=== PATIENT | male | born 1990 | race Caucasian/White ===

== ENCOUNTER 2016-10-07 08:55 | Emergency (ER) ==
[2016-10-07 09:03] VITALS: BP 128/84; TEMP 100.6; BMI 24.4
[2016-10-07 10:21] LABS: BASOPHILS % (AUTO) 0.4 % (0.0-3.0); EOSINOPHILS # (AUTO) 0.2 K/ul (0.0-0.7); EOSINOPHILS % (AUTO) 1.8 % (0.0-7.0); HEMATOCRIT 49.5 % (42.0-52.0); HEMOGLOBIN 17.4 g/dl (14.0-18.0); IMMATURE GRANULOCYTE % (AUTO) 0.7 % (0.0-5.0); LYMPHOCYTES # (AUTO) 1.4 K/uL (0.60-3.4); MEAN CORPUSCULAR HEMOGLOBIN 30.2 pg (27.0-31.0); MEAN CORPUSCULAR HGB CONC 35.2 (31.8-35.4); MEAN CORPUSCULAR VOLUME 85.9 fl (80.0-94.0); MONOCYTES # (AUTO) 0.9 K/uL (0.4-2.0); MONOCYTES % (AUTO) 8.8 (0-10); NEUTROPHILS # (AUTO) 7.6 K/ul (2.0-6.9); NEUTROPHILS % (AUTO) 74.3; PLATELET COUNT 277 10^3/uL (140-440); RED BLOOD COUNT 5.76 10^6/ul (4.70-6.10); WHITE BLOOD COUNT 10.25 K/ul (4.2-10.2)
[2016-10-07 10:29] LABS: FLU INTERNAL QC INTERNAL QC VALID; RAPID FLU A NEGATIVE (NEGATIVE); RAPID FLU B NEGATIVE (NEGATIVE)
[2016-10-07 10:45] LABS: ALBUMIN 4.6 g/dL (3.4-5.0); ALBUMIN/GLOBULIN RATIO 1.35; ANION GAP 13.4; BILIRUBIN,TOTAL 0.31 mg/dL (0.00-1.20); BUN/CREATININE RATIO 10.89; CALCIUM 9.9 mg/dL (8.2-10.2); CREATININE 1.01 mg/dL (0.60-1.10); POTASSIUM 4.4 mmol/L (3.5-5.1)
[2016-10-07 10:56] LABS: ERYTHROCYTE SEDIMENTATION RATE 5 mm/hr (0-15); ESR INTERNAL QC INTERNAL QC VALID
--- NOTE | 2016-10-07 10:57 | CT ---
EXAM: CT chest without contrast HISTORY: Cough with chest wall pain COMPARISON: CT chest 07/25/2016, 07/22/2016 and numerous prior chest x-rays TECHNIQUE: Serial axial images of the chest were obtained from the lung apices to the upper abdomen without contrast. These were viewed in multiple planes. FINDINGS: The thyroid is normal. The visualized vessels are unremarkable without aneurysm or steno sis. The heart is normal in size without pericardial effusion. There are no pathologically enlarge d mediastinal or hilar lymph nodes. There is no pneumothorax or pleural effusion. There is a small stable right upper lobe pulmonary cy st on image 14. There is minimal airway thickening and central lobular ground-glass and minimal con solidation in the right middle lobe. No additional abnormality is identified. The central airways are patent. There is an old healing right lateral sixth rib fracture. The vertebral bodies are unremarkable. T he soft tissues in the upper abdomen on this limited evaluation are unremarkable. IMPRESSION: 1. Mild airway thickening with central lobular ground-glass and consolidation in the right middle l obe concerning for small airways infection/early pneumonia. 2. Healing changes of a right lateral sixth rib fracture. Recommend correlate with pain localizati on for chest pain.
--- NOTE | 2016-10-07 11:16 | ED.PDOC ---
General ED Provider: Dr. MEE WANG-ER Chief Complaint: Chest Wall Injury/Pain Stated Complaint: iv been coughing and it hurtrs Time Seen by Physician: 09:00 Mode of Arrival: Walk-In Information Source: Patient Exam Limitations: No limitations [facility] Documentation Reviewed and Agree: Yes Respiratory Complaint Exam - Respiratory Complaint/Exam Onset/Duration: 2 days Symptoms Are: Still present Timing: Intermittent Initial Severity: Mild Current Severity: Mild Location: Chest Character: Reports: Non-productive cough Aggravating: Reports: URI Alleviating: Reports: None Associated Signs and Symptoms: Reports: Pleuritic chest pain, URI, Nasal congestion. Denies: Rapid breathing, Dyspnea, Fever, Chills, Chest pain, Wheezing, Hemoptysis, Dizziness, Calf pain, Calf swelling, Edema, Hoarseness, Sinus discomfort, Vomiting, Sore throat, Weight loss, Decreased oral intake, Increased thirst, Increased appetite, Increased urination Related History: Reports: Similar episode Related Surgical History: Reports: None Pulmonary Embolism Risk Factors: None Status Asthmaticus Risk Factors: Reports: None Recent Stress Test: No Recent Echo/LV Function: No Current Antibiotic Use: No Current Asthma Medication Use: No Respiratory Distress: None Inadequate Respiratory Effort: No Dysphagia Present: No Stridor Present: No JVD Present: No Diminished Breath Sounds: No Grunting Respirations: No [place] Respirations: No Differential Diagnoses: Pneumonia Review of Systems - Review Of Systems Constitutional: Reports: No symptoms Eyes: Reports: No symptoms Ears, Nose, Mouth, Throat: Reports: No symptoms Respiratory: Reports: Cough Cardiac: Reports: Chest pain GI: Reports: No symptoms : Reports: No symptoms Musculoskeletal: Reports: No symptoms Skin: Reports: No symptoms Neurological: Reports: No symptoms Endocrine: Reports: No symptoms Hematologic/Lymphatic: Reports: No symptoms All Other Systems: Reviewed and Negative Past Medical History - Past Medical History Previously Healthy: Yes Endocrine: Reports: None Cardiovascular: Reports: None Respiratory: Reports: None Hematological: Reports: None Gastrointestinal: Reports: None Genitourinary: Reports: None Neuro/Psych: Reports: Anxiety Musculoskeletal: Reports: None Cancer: Reports: None Other Pertinent Past Medical History: arthritis- - Surgical History General Surgical History: Reports: Unknown - Family History Family History: Reports: Unknown - Social History Smoking Status: Current some day smoker Hx Substance Use: No Alcohol Screening: None Lives: With family Physical Exam - Physical Exam Appearance: Well-appearing, No pain distress, Well-nourished Pain Distress: Mild Eyes: RAUL ENT: Ears normal, Nose normal, Oropharynx normal Neck: Supple Respiratory: Rhonchi Cardiovascular: RRR, Pulses normal, No rub, No murmur GI/: Soft Musculoskeletal: Normal strength, ROM intact, No edema, No calf tenderness Skin: Warm, Dry, Normal color Neurological: Sensation intact, Motor intact, Reflexes intact, Cranial nerves intact, Alert, Oriented Psychiatric: Affect appropriate, Mood appropriate Interpretation - Radiology Interpretation Radiology Interpretation By: Radiologist Radiology Results: Positive Exam Interpreted: CT Scan Critical Care Note - Critical Care Note Total Time (mins): 0 Course - Course Hematology/Chemistry: 10/07/16 10:15 10/07/16 10:15 Orders, Labs, Meds: Lab Review 10/07/16 10/07/16 10:05 10:15 WBC 10.25 H RBC 5.76 Hgb 17.4 Hct 49.5 MCV 85.9 MCH 30.2 MCHC 35.2 RDW Coeff of [place] 12.2 Plt Count 277 Immature Gran % (Auto) 0.7 Neut % (Auto) 74.3 Lymph % (Auto) 14.0 [place] % (Auto) 8.8 Eos % (Auto) 1.8 Baso % (Auto) 0.4 Immature Gran # (Auto) 0.1 Neut # 7.6 H Lymph # 1.4 [place] # 0.9 Eos # 0.2 Baso # 0.0 ESR 5 D-Dimer 0.19 Sodium 139 Potassium 4.4 Chloride 103 Carbon Dioxide 27 Anion Gap 13.4 BUN 11 Creatinine 1.01 Estimated GFR (MDRD) 89.00 BUN/Creatinine Ratio 10.89 Glucose 92 Calcium 9.9 Total Bilirubin 0.31 AST 20 ALT 28 Alkaline Phosphatase 96 Total Protein 8.0 Albumin 4.6 Globulin 3.4 Albumin/Globulin Ratio 1.35 Influenza A (Rapid) Negative Influenza B (Rapid) Negative Orders Category Date Time Status BLOOD CULTURE Stat LAB 10/07/16 10:15 Received CBC W/ AUTO DIFF Stat LAB 10/07/16 10:15 Completed COMPREHENSIVE METABOLIC PANEL Stat LAB 10/07/16 10:15 Completed D-DIMER Stat LAB 10/07/16 10:15 Completed ESR Stat LAB 10/07/16 10:15 Completed MOLECULAR GROUP A STREP Stat LAB 10/07/16 10:05 Results RAPID FLU A/B Stat LAB 10/07/16 10:05 Completed STREP SCREEN Stat LAB 10/07/16 10:[address] CHEST W/O CONTRAST Stat RADS 10/07/16 10:01 Completed Vital Signs: Temp Pulse Resp BP Pulse Ox 10/07/16 08:55 100.6 F H 98 H 16 128/84 96 Departure - Departure Time of Disposition: 11:16 Disposition: HOME SELF-CARE Discharge Problem: Pneumonia Qualifiers: Pneumonia type: due to unspecified organism Laterality: right Lung location: unspecified part of lung Qualifier Code: (J18.9) Pneumonia, unspecified organism Rib fracture Qualifiers: Encounter type: initial encounter Rib fracture type: single rib Fracture type: closed Laterality: right Qualifier Code: (S22.31XA) Fracture of one rib, right side, initial encounter for closed fracture Instructions: Community Acquired Pneumonia (ED) Condition: Good Pt referred to PMD for follow-up: Yes Additional Instructions: levaquin 500mg #10--stop smoking---norco 7.5mg q 4hrs prn pain #20--f/u clinic next week Allergies/Adverse Reactions: Allergies No Known Allergies Allergy (Verified 10/07/16 09:05) Home Medications: Ambulatory Orders 1 [No Reported Medications] 10/07/16 Disposition Discussed With: Patient, Family
== END 2016-10-07 11:30 | disposition home or self-care (01) ==
LOC: ED 08:55
DX: J18.9 Pneumonia, unspecified organism (principal); S22.31XA Fracture of one rib, right side, initial encounter for closed fracture; F17.210 Nicotine dependence, cigarettes, uncomplicated
CPT/HCPCS: 36415; 80053; 85025; 85379; 85651; 87040; 87651; 87804; 87880; 99283

== ENCOUNTER 2016-11-18 11:50 | Outpatient (CLI) ==
[2016-11-18 13:08] LABS: BASOPHILS % (AUTO) 0.4 % (0.0-3.0); EOSINOPHILS # (AUTO) 0.2 K/ul (0.0-0.7); IMMATURE GRANULOCYTE % (AUTO) 0.4 % (0.0-5.0); LYMPHOCYTES # (AUTO) 2.1 K/uL (0.60-3.4); LYMPHOCYTES % (AUTO) 26.9 (10.0-50.0); MEAN CORPUSCULAR HEMOGLOBIN 30.1 pg (27.0-31.0); MEAN CORPUSCULAR HGB CONC 34.6 (31.8-35.4); MEAN CORPUSCULAR VOLUME 86.8 fl (80.0-94.0); MONOCYTES # (AUTO) 0.5 K/uL (0.4-2.0); NEUTROPHILS # (AUTO) 4.9 K/ul (2.0-6.9); NEUTROPHILS % (AUTO) 64.3; PLATELET COUNT 274 10^3/uL (140-440); RED BLOOD COUNT 5.99 10^6/ul (4.70-6.10); WHITE BLOOD COUNT 7.63 K/ul (4.2-10.2)
[2016-11-18 13:13] LABS: BILIRUBIN,URINE Negative (NEGATIVE); KETONES,URINE Negative (NEGATIVE); LEUKOCYTE ESTERASE ,URINE Negative (NEGATIVE); NITRITE,URINE Negative (NEGATIVE); PH,URINE 6.5 (5-9); PROTEIN,URINE Trace (NEGATIVE); URINE, BLOOD 2+ (NEGATIVE)
[2016-11-18 13:21] LABS: ADD URINE MICROSCOPIC YES
[2016-11-18 13:24] LABS: ALBUMIN 5.1 g/dL (3.4-5.0); ALBUMIN/GLOBULIN RATIO 1.38; ANION GAP 15.1; BILIRUBIN,TOTAL 0.64 mg/dL (0.00-1.20); BUN/CREATININE RATIO 11.65; CALCIUM 10.3 mg/dL (8.2-10.2); CREATININE 1.03 mg/dL (0.60-1.10); POTASSIUM 4.1 mmol/L (3.5-5.1); TOTAL PROTEIN 8.8 g/dL (6.4-8.2)
[2016-11-22 08:11] LABS: HIV ANTIBODIES QUALITATIVE NON REACTIVE (Nonreactive); RAPID PLASMA REAGIN NON REACTIVE
== END 2016-11-18 11:51 | disposition home or self-care (01) ==
LOC: LAB 11:50
PROVIDERS: ATTEND Nurse Practitioner Family
DX: Z20.2 Contact with and (suspected) exposure to infections with a predominantly sexual mode of transmission (principal)
CPT/HCPCS: 36415; 80053; 80074; 81001; 85025; 86592; 86695; 86696; 86701; 87800

== ENCOUNTER 2017-03-20 16:21 | Outpatient (CLI) ==
[2017-03-20 18:05] LABS: BILIRUBIN,URINE Negative (NEGATIVE); KETONES,URINE Negative (NEGATIVE); LEUKOCYTE ESTERASE ,URINE 3+ (NEGATIVE); NITRITE,URINE Negative (NEGATIVE); PH,URINE 6.5 (5-9); PROTEIN,URINE 1+ (NEGATIVE); URINE, BLOOD 1+ (NEGATIVE)
[2017-03-20 18:16] LABS: ADD URINE MICROSCOPIC YES
[2017-03-20 18:21] LABS: BACTERIA,URINE 2+ (NOT PRESENT)
== END 2017-03-20 16:22 | disposition home or self-care (01) ==
LOC: LAB 16:21
PROVIDERS: ATTEND Emergency Medicine
DX: R35.0 Frequency of micturition (principal); N30.01 Acute cystitis with hematuria; A64 Unspecified sexually transmitted disease
CPT/HCPCS: 81001; 87086

== ENCOUNTER 2017-03-23 10:39 | Emergency (ER) ==
[2017-03-23 10:53] VITALS: BP 138/87; TEMP 99.2; BMI 23.6
--- NOTE | 2017-03-23 11:00 | ED.PDOC ---
General ED Provider: Dr. BARBARA PANCHAL JR Chief Complaint: Back Pain Stated Complaint: Pain right back/flank rt hand swollen. Ankylosing spondylitis . occasional flares. Stopped seeing specialist 1 1/2 yrs aog due to losing insurance[End]99.2 92 20 99% 138/87 04/30 Naproxin this AM, OTC arthritis med,. Toradol 01/27/15 60 mg. Norflex 01/27/15. Toradol IM09/23 60 mg. Norflex IM09/23/15 60 mg. Decadron IM 07/25/16 4 mg. Toradol IM 07/25/16 60 mg Time Seen by Physician: 11:00 Mode of Arrival: Walk-In Information Source: Patient Exam Limitations: No limitations [facility] and Triage Documentation Reviewed and Agree: No Review of Systems - Review Of Systems Constitutional: Reports: Malaise, Weakness Eyes: Reports: No symptoms Ears, Nose, Mouth, Throat: Reports: No symptoms Respiratory: Reports: No symptoms Cardiac: Reports: No symptoms GI: Reports: No symptoms : Reports: No symptoms Musculoskeletal: Reports: Back pain, Joint pain Skin: Reports: No symptoms Neurological: Reports: No symptoms Endocrine: Reports: No symptoms Hematologic/Lymphatic: Reports: No symptoms All Other Systems: Other Past Medical History - Past Medical History Previously Healthy: Yes Endocrine: Reports: None Cardiovascular: Reports: None Respiratory: Reports: None Hematological: Reports: None Gastrointestinal: Reports: None Genitourinary: Reports: None Neuro/Psych: Reports: Anxiety Musculoskeletal: Reports: None Cancer: Reports: None Other Pertinent Past Medical History: arthritis-- auto-immune illness-- ankylosing spondilitis - Surgical History General Surgical History: Reports: Other (mother with kidney stones) - Family History Family History: Reports: Unknown - Social History Smoking Status: Current some day smoker, Light tobacco smoker Hx Substance Use: No Alcohol Screening: None Physical Exam - Physical Exam Appearance: Well-appearing, Ill-appearing, Well-nourished Pain Distress: Moderate Eyes: RAUL, EOMI, Conjunctiva clear ENT: Ears normal, Nose normal, Oropharynx normal Neck: Supple Respiratory: Airway patent, Breath sounds clear, Breath sounds equal, Respirations nonlabored Cardiovascular: RRR, Pulses normal, No rub, No murmur GI/: Soft, Nontender, No masses, Bowel sounds normal, No Organomegaly Musculoskeletal: ROM intact (right flank tenderness), Edema (right handed tendinitis swelling of hand mostly middle finger with pain on ROM) Re-Evaluation - Re-Evaluation Time of Re-Evaluation: 11:37 (patient declines hand xrays) Critical Care Note - Critical Care Note Total Time (mins): 0 Course - Course Orders, Labs, Meds: Lab Review 03/23/17 11:15 Urine Color Yellow Urine Clarity Clear Urine pH 7.0 Ur Specific [place] 1.015 Urine Protein Negative Urine Glucose (UA) Negative Urine Ketones Negative Urine Blood 2+ Urine Nitrite Negative Urine Bilirubin Negative Urine Urobilinogen 0.2 Ur Leukocyte Esterase Negative Urine Microscopic RBC 5-10 Ur Squamous Epith Cells 0-2 Orders Category Date Time Status UA [URINALYSIS C & S IF INDICATED] Stat LAB 03/23/17 11:15 Completed Ketorolac Tromethamine [Toradol] MEDS 03/23/17 11:24 Discontinued 60 mg IM ONCE STA Orphenadrine Citrate [Norflex] MEDS 03/23/17 11:25 Discontinued 60 mg IM ONCE STA CT ABDOMEN/PELVIS WO CONTRAST Stat RADS 03/23/17 11:35 Completed Medications Discontinued Medications Generic Name Dose Route Start Last Admin Trade Name Freq PRN Reason Stop Dose Admin Ketorolac Tromethamine 60 mg 03/23/17 11:24 03/23/17 11:34 Toradol IM 03/23/17 11:25 60 mg ONCE STA Administration Orphenadrine Citrate 60 mg 03/23/17 11:25 03/23/17 11:36 Norflex IM 03/23/17 11:26 60 mg ONCE STA Administration Vital Signs: Temp Pulse Resp BP Pulse Ox 03/23/17 10:44 99.2 F 92 H 20 138/87 99 Departure - Departure Time of Disposition: 13:01 Disposition: HOME SELF-CARE Discharge Problem: Joint pain in fingers of right hand, Back pain due to inflammatory process Instructions: Ankylosing Spondylitis (ED) Condition: Fair Pt referred to PMD for follow-up: Yes Additional Instructions: may use Toradol or Aleve for pain and swelling do not take together Aleve dose is two twice a day Toradol is one four times a day follow up with PMD for Rheumatology referral discuss hematuria with [employer](take CT and Urinalysis test re[ports to visit) Prescriptions: Ketorolac Tromethamine [Toradol] 10 mg PO QID PRN #20 tablet PRN Reason: PAIN Allergies/Adverse Reactions: Allergies No Known Allergies Allergy (Verified 03/23/17 10:49) Home Medications: Ambulatory Orders Ibuprofen 800 mg PO PRN 11/18/16 Ketorolac Tromethamine [Toradol] 10 mg PO QID PRN #20 tablet 03/23/17
[2017-03-23] MEDS ORDERED: TORADOL IM STA (11:24)
[2017-03-23] MEDS ORDERED: NORFLEX IM STA (11:25)
[2017-03-23 11:30] LABS: ADD URINE MICROSCOPIC YES; BILIRUBIN,URINE Negative (NEGATIVE); KETONES,URINE Negative (NEGATIVE); LEUKOCYTE ESTERASE ,URINE Negative (NEGATIVE); NITRITE,URINE Negative (NEGATIVE); PROTEIN,URINE Negative (NEGATIVE); URINE, BLOOD 2+ (NEGATIVE)
--- NOTE | 2017-03-23 12:26 | CT ---
EXAM: CT Abdomen without contrast. CT Pelvis without contrast. HISTORY: Right flank pain. Hematuria. COMPARISON: None available. TECHNIQUE: Multiple axial images of the abdomen and pelvis were obtained without intravenous contra st. Images were reformatted in the coronal plane. FINDINGS: Please note that evaluation of the abdominal and pelvic structures is limited due to lack of intravenous contrast. The lung bases are clear. No acute osseous abnormality identified. The liver, gallbladder, pancreas, spleen, and adrenal glands demonstrate normal contour. No calcifi ed renal stones or hydronephrosis identified. No perinephric inflammation detected. No ureteral or bladder calculi are seen. Bladder is not well distended. Phleboliths noted in the pelvis. The bowel is normal in course and caliber without evidence for obstruction or inflammatory process. The appendix is normal. No free fluid or free air identified IMPRESSION: No evidence for nephrolithiasis or obstructive uropathy. No acute abnormality within the abdomen or pelvis.
== END 2017-03-23 13:30 | disposition home or self-care (01) ==
LOC: ED 10:39
DX: M25.541 Pain in joints of right hand (principal); M54.9 Dorsalgia, unspecified; R31.9 Hematuria, unspecified; F17.210 Nicotine dependence, cigarettes, uncomplicated
CPT/HCPCS: 81001; 96372; 99282

== ENCOUNTER 2017-04-17 14:09 | Outpatient (CLI) ==
[2017-04-11 02:41] VITALS: BMI 23.5
[2017-04-17 14:26] LABS: BASOPHILS % (AUTO) 0.3 % (0.0-3.0); EOSINOPHILS # (AUTO) 0.1 K/ul (0.0-0.7); EOSINOPHILS % (AUTO) 0.7 % (0.0-7.0); HEMATOCRIT 46.5 % (42.0-52.0); HEMOGLOBIN 16.2 g/dl (14.0-18.0); IMMATURE GRANULOCYTE % (AUTO) 0.8 % (0.0-5.0); LYMPHOCYTES # (AUTO) 2.9 K/uL (0.60-3.4); LYMPHOCYTES % (AUTO) 19.1 (10.0-50.0); MEAN CORPUSCULAR HEMOGLOBIN 30.2 pg (27.0-31.0); MEAN CORPUSCULAR HGB CONC 34.8 (31.8-35.4); MEAN CORPUSCULAR VOLUME 86.6 fl (80.0-94.0); MONOCYTES % (AUTO) 6.6 (0-10); NEUTROPHILS # (AUTO) 10.9 K/ul (2.0-6.9); NEUTROPHILS % (AUTO) 72.5; PLATELET COUNT 288 10^3/uL (140-440); RED BLOOD COUNT 5.37 10^6/ul (4.70-6.10); WHITE BLOOD COUNT 15.03 K/ul (4.2-10.2)
[2017-04-17 15:11] LABS: ALBUMIN 4.3 g/dL (3.4-5.0); ALBUMIN/GLOBULIN RATIO 1.19; ANION GAP 17.4; BILIRUBIN,TOTAL 0.63 mg/dL (0.00-1.20); BUN/CREATININE RATIO 16.85; CALCIUM 10.3 mg/dL (8.2-10.2); CHOL/HDL RATIO 3.5 (4.5-6.4); CREATININE 0.89 mg/dL (0.60-1.10); POTASSIUM 4.4 mmol/L (3.5-5.1); TOTAL PROTEIN 7.9 g/dL (6.4-8.2)
[2017-04-18 07:19] LABS: RHEUMATOID ARTHRITIS FACTOR < 10.0 IU/mL (0.0-13.9)
[2017-04-18 13:16] LABS: ANTI-NUCLEAR ANTIBODY SCREEN Negative (Negative)
== END 2017-04-17 14:10 | disposition home or self-care (01) ==
LOC: LAB 14:09
PROVIDERS: ATTEND Emergency Medicine
DX: F41.9 Anxiety disorder, unspecified (principal); M25.50 Pain in unspecified joint; M25.60 Stiffness of unspecified joint, not elsewhere classified
CPT/HCPCS: 36415; 80053; 80061; 84443; 85025; 86038; 86430

== ENCOUNTER 2017-10-23 11:57 | Outpatient (CLI) ==
[2017-04-11 02:41] VITALS: BMI 23.5
--- NOTE | 2017-10-23 14:19 | DI ---
EXAM: PA and lateral views of the chest HISTORY: Acute upper respiratory infection COMPARISON: CT chest 08/06/2017 and multiple priors FINDINGS: The cardiomediastinal silhouette is normal. There is no pneumothorax or pleural effusion. There is no consolidation, nodule or mass. There is a right lung calcified granuloma. The osseous structures are unremarkable. IMPRESSION: No acute cardiopulmonary process
== END 2017-10-23 11:58 | disposition home or self-care (01) ==
LOC: RAD 11:57
PROVIDERS: ATTEND Emergency Medicine
DX: J06.9 Acute upper respiratory infection, unspecified (principal)

== ENCOUNTER 2018-05-09 10:13 | Emergency (ER) ==
[2018-05-09 10:16] VITALS: BP 143/80; TEMP 98; BMI 26.6
--- NOTE | 2018-05-09 10:31 | ED.PDOC ---
General ED Provider: Dr. ANDREW STERN Chief Complaint: Cough Stated Complaint: cough not getting better Time Seen by Physician: 10:28 (smoke 1pk/day) Mode of Arrival: Walk-In Information Source: Patient [facility] T[facility] Documentation Reviewed and Agree: Yes Does patient meet sepsis criteria?: No If yes, has appropriate treatment been initiated?: No System Inflammatory Response Syndrome: Not Applicable Sepsis Protocol: For patient's 13 years and over: Temp is 96.8 and below OR 101 and greater Pulse >90 BPM Resp >20/minute Acutely Altered Mental Status Are patient's symptoms suggestive of a new infection, such as: -Pneumonia -Skin, Soft Tissue -Endocarditis -UTI -Bone, Joint Infection -Implantable Device -Acute Abdominal Infection -Wound Infection -Meningitis -Blood Stream Catheter Infection -Unknown Respiratory Complaint Exam - Respiratory Complaint/Exam Onset/Duration: 1 week smokes 1 pk/day Symptoms Are: Still present Timing: Intermittent Initial Severity: Mild Current Severity: Mild Location: Chest Character: Reports: Non-productive cough Aggravating: Reports: None Alleviating: Reports: None Associated Signs and Symptoms: Reports: URI. Denies: Rapid breathing, Dyspnea, Fever, Chills, Chest pain, Pleuritic chest pain, Wheezing, Hemoptysis, Dizziness , Calf pain, Calf swelling, Edema, Nasal congestion, Hoarseness, Sinus discomfort, Vomiting, Sore throat, Weight loss, Decreased oral intake, Increased thirst, Increased appetite, Increased urination History of Healthcare-Acquired Pneumonia: No Related Surgical History: Reports: None Pulmonary Embolism Risk Factors: None Cardiac Risk Factors: Reports: Smoking Pseudomonas Risk Factors: Reports: None Tuberculosis Risk Factors: Reports: Smoking Status Asthmaticus Risk Factors: Reports: None Home Oxygen Use: No Recent Stress Test: No Recent Echo/LV Function: No Current Antibiotic Use: No Current Asthma Medication Use: No Respiratory Distress: None Inadequate Respiratory Effort: No Dysphagia Present: No Stridor Present: No JVD Present: No Accessory Muscle Use: No Retractions: Not Present Diminished Breath Sounds: No Sinus Tenderness: None Differential Diagnoses: Asthma, Pneumonia, Bronchitis Review of Systems - Review Of Systems Constitutional: Reports: No symptoms Eyes: Reports: No symptoms Ears, Nose, Mouth, Throat: Reports: No symptoms Respiratory: Reports: Cough Cardiac: Reports: No symptoms GI: Reports: No symptoms : Reports: No symptoms Musculoskeletal: Reports: No symptoms Skin: Reports: No symptoms Neurological: Reports: No symptoms Endocrine: Reports: No symptoms Hematologic/Lymphatic: Reports: No symptoms All Other Systems: Reviewed and Negative Past Medical History - Past Medical History Previously Healthy: Yes Endocrine: Reports: None Cardiovascular: Reports: None Respiratory: Reports: None Hematological: Reports: None Gastrointestinal: Reports: None Genitourinary: Reports: None Neuro/Psych: Reports: Anxiety Musculoskeletal: Reports: Arthritis, Joint Pain Cancer: Reports: None Other Pertinent Past Medical History: arthritis-- auto-immune illness-- ankylosing spondilitis - Surgical History General Surgical History: Reports: Other (mother with kidney stones) - Family History Family History: Reports: Unknown - Social History Smoking Status: Current every day smoker Hx Substance Use: No Alcohol Screening: None - Immunizations Tetanus Shot up to Date: Yes Physical Exam - Physical Exam Appearance: Well-appearing, No pain distress, Well-nourished Eyes: RAUL, EOMI, Conjunctiva clear ENT: Ears normal, Nose normal, Oropharynx normal Respiratory: Rhonchi Cardiovascular: RRR, Pulses normal, No rub, No murmur GI/: Soft, Nontender, No masses, Bowel sounds normal, No Organomegaly Musculoskeletal: Normal strength, ROM intact, No edema, No calf tenderness Skin: Warm, Dry, Normal color Neurological: Sensation intact, Motor intact, Reflexes intact, Cranial nerves intact, Alert, Oriented Psychiatric: Affect appropriate, Mood appropriate Interpretation - Radiology Interpretation Radiology Interpretation By: Radiologist Radiology Results: Negative Exam Interpreted: CXR Critical Care Note - Critical Care Note Total Time (mins): 0 Course - Course Orders, Labs, Meds: Orders Category Date Time Status CHEST, 2 VIEWS PA & LAT Stat RADS 05/09/18 10:27 Completed Vital Signs: Temp Pulse Resp BP Pulse Ox 05/09/18 10:13 98.0 F 72 18 143/80 H 97 Departure - Departure Time of Disposition: 12:00 Disposition: HOME SELF-CARE Discharge Problem: Cough, Bronchitis Instructions: How to Stop Smoking (ED), Acute Bronchitis (ED), Bronchospasm (ED ), How Your Lungs Work (ED), Tobacco Stomatitis (DC) Condition: Good Pt referred to PMD for follow-up: Yes IPMP verified?: No Additional Instructions: Please call your Family Physician as soon as possible to schedule a follow-up appointment. Allergies/Adverse Reactions: Allergies No Known Allergies Allergy (Verified 04/11/17 02:48) Home Medications: Ambulatory Orders Hydrocodone/Acetaminophen [[place] 5-325 Tablet] 1 tab PO Q6HR PRN #20 tablet Disposition Discussed With: Patient
--- NOTE | 2018-05-09 11:15 | DI ---
EXAM: Chest two view, frontal and lateral views. HISTORY: Cough. COMPARISON: 10/23/2017. FINDINGS: The heart size is normal. There is no pulmonary vascular congestion. The lungs are clear . No pleural effusion or pneumothorax is seen. No acute osseous abnormality identified. Since the prior study, there has been no significant interval change. IMPRESSION: No acute cardiopulmonary process.
== END 2018-05-09 11:26 | disposition home or self-care (01) ==
LOC: ED 10:13
DX: J40 Bronchitis, not specified as acute or chronic (principal); F17.210 Nicotine dependence, cigarettes, uncomplicated
CPT/HCPCS: 99282